=== PATIENT | male | born 1945 | race Caucasian/White ===

== ENCOUNTER 2017-02-07 16:05 | Emergency (ER) | payer MEDICARE, OTHER ==
--- NOTE | 2017-02-07 16:27 | ERNOTE ---
Neuro HPI ER Record Presenting Symptoms: weakness, numbness Time Seen by Provider: 02/07/17 16:05 Source: patient Exam Limitations: no limitations Allergies/Adverse Reactions: Allergies Allergy/AdvReac Type Severity Reaction Status Date / Time Sulfa (Sulfonamide Allergy Verified 02/07/17 16:21 Antibiotics) - History of Present Illness Narrative: Patient was working in his shop when he started to have right facial, arm and leg numbness. He also had difficulty holding on to things with his hand and felt weaker in his right leg, did not fall, symptoms lasted a few minutes and have completely resolved no, no vision or speech problems Date (Duration): 02/07/17 Time (Timing): 15:45 Onset: sudden onset, gone now Severity: mild - Character of Deficits New weakness: Present: RUE, RLE, facial (rt) Altered sensation: Present: RUE, RLE, facial (rt) Additional Deficits: Absent: vision problems, impaired speech Baseline Cognition: Present: alert, oriented x 4 Baseline Gait: Present: walks w/o assistance Associated Symptoms: Denies: fever/chills, sweating, chest pain, neck/back pain Prior Treament: Denies: recently seen, similar symptoms before Review of Systems - Review of Systems Constitutional: Absent: recent illness, fever EYE: Absent: vision changes ENT: Absent: nose congestion, sore throat Respiratory: Present: shortness of breath - baseline COPD, cough - slight Cardiology: Absent: chest pain Gastrointestinal/Abdominal: Absent: nausea, abdominal pain Genitourinary: Present: no symptoms reported Musculoskeletal: Present: no symptoms reported Skin: Present: no symptoms reported Neurological: Present: See HPI - Patient's Past Medical History Patient History - Medical: No pertinent hx Patient History - Cardiac/Respiratory: COPD Patient History - Cancer: No Hx of Cancer Patient History - Surgical Procedures: Other - neck surgery Patient History - Other: None - Family History Mother Family History - Medical: Father Family History - Medical: - Social History Living Situations: home Abuse History: No History of abuse Psych History: No pertinent hx Smoking Status: Former smoker - quit 2014 Alcohol Use: heavy - 3-5 beer per night Drug Use: none - Immunizations Immunizations Up to Date: No Hx Pneumococcal Vaccination: No History of Influenza Vaccine: No Physical Exam - Physical Exam General Appearance: Present: wd/wn, alert, no apparent distress, obese Head Exam: Present: normal inspection, no evidence of injury Eye Exam: Normal inspection: bilateral, PERRL: bilateral, EOMI: bilateral Ears, Nose, Throat: Present: normal ENT inspection, normal pharynx Respiratory: Present: no respiratory distress, normal breath sounds, no accessory muscle use, lungs clear Cardiovascular/Chest: Present: regular rate, rhythm, no murmur, normal peripheral pulses Gastrointestinal/Abdominal: Present: normal bowel sounds, nontender, nondistended, soft Extremity Exam: Present: no edema Neurological Exam: Present: alert, oriented, normal mood/affect, no motor/ sensory deficits Skin Exam: Present: normal color, warm/dry Thu Coma Scale - Assess Eye Opening: Spontaneous Motor: Obeys Commands Verbal: Oriented - Total Coma Scale Total: 15 Initial Stroke Assessment - NIH Stroke Scale Level of Consciousness: Alert LOC Questions (Year and Age): Answers both correctly LOC Commands (open/close eyes/fist): Performs both correctly Lateral Gaze Paresis: None Visual Field Loss: No visual loss Facial Palsy: Normal movement Right Arm Motor (10 sec hold): No drift Left Arm Motor (10 sec hold): No drift Right Leg Motor (5 sec hold): No drift Left Leg Motor (5 sec hold): No drift Limb Ataxia (finger/nose heel/ling): Absent Sensory Loss (pinprick arms/legs/face): No sensory loss Language Aphasia (description/naming/reading): No aphasia; normal Dysarthria (speech clarity): Normal articulation Neglect Inattention (visual/tactile/auditory/spatial/person): No neglect Initial Stroke Scale Score:: 0 ED Progress - Results and Orders Patient's Lab Results:: I have reviewed the patient's lab results. - Vital Signs Patient's Vital Signs:: I have reviewed the patient's vital signs. - EKG EKG: NSR, AK - 219, first degree AV block, no ST T wave changes, other EKG read: Interp. by me - X-Ray X-Ray #1 X-Ray: chest - no acute changes Interpretation: Interp. by me - CT/Ultrasound CT/Ultrasound Narrative: CT head: no acute changes - Progress/Reassessment Progress Note-Subjective: 02/07/17 17:38 no new symptoms, discussed results with family and patient, discussed needs to follow as increased rish for CVA Departure Clinical Impression: TIA (transient ischemic attack) Qualifiers: Transient cerebral ischemia type: unspecified Qualified Code(s): G45.9 - Transient cerebral ischemic attack, unspecified - Departure Disposition: Home self-care Condition: Good Instructions: Transient Ischemic Attack, [id number] Additional Instructions: take a aspirin daily call your doctor in the morning for a follow up appointment Referrals: Lisandro Gregorio DO [Staff Physician] -
[2017-02-07 16:39] LABS: Hematocrit 39.6 % (42.0-52.0); Hemoglobin 13.4 gm/dL (13.5-18.0); Mean Cell Volume 85.5 fl (78-100); Mean Corpuscular Hemoglobin 28.9 pg (27-31); Mean Corpuscular Hgb Conc 33.8 g/dl (32-36); Mean Platelet Volume 12.3 fl (6.0-9.5); Neutrophil # 3.2 K/mm3 (1.3-6.0); Neutrophil % 50.8 % (42-75.0); Platelet Count 148 K/mm3 (150-450); Red Blood Count 4.63 M/mm3 (4.7-6.0); Red Cell Distribution Width 13.2 % (11.5-14.0); White Blood Count 6.2 K/mm3 (4.0-10.5)
[2017-02-07 16:55] LABS: Albumin * 3.5 gm/dl (3.4-5.0); Anion Gap 10.7 mmol/L (6.8-13.8); BUN/Creatinine Ratio 11.5 (9.0-21.6); Ca. Corrected For Albumin 9.5 mg/dL (8.4-10.2); Calcium * 9.4 mg/dL (7.9-10.9); Potassium 3.7 mmol/L (3.4-4.6); Total Protein 7.4 gm/dL (6.2-8.2)
[2017-02-07 16:57] LABS: INR 1.2 INR (0.90-1.10); Partial Thrombolplastin Time 32.7 Seconds (24-32)
[2017-02-07 17:14] VITALS: BP 154/79
[2017-02-07] MEDS ORDERED: ASPIRIN 325 MG TABLET.DR ONE (17:38)
[2017-02-07] MEDS ORDERED: ASPIRIN 325 MG TABLET.DR PO ONE (17:39)
== END 2017-02-07 17:45 | disposition home or self-care (01) ==
LOC: ER 16:05
DX: G45.9 Transient cerebral ischemic attack, unspecified (principal); Z87.891 Personal history of nicotine dependence

== ENCOUNTER 2019-02-28 07:33 | Observation (INO) ==
--- NOTE | 2019-02-28 07:50 | ERNOTE ---
<Jak Thomas - Last Filed: 02/28/19 08:06> Neuro HPI ER Record Presenting Symptoms: numbness, facial droop Time Seen by Provider: 02/28/19 07:40 Source: patient Exam Limitations: no limitations Immunizations: IMMUNIZATION HX Immunizations Up to Date No History of Influenza Vaccine No Hx Pneumococcal Vaccination No Allergies/Adverse Reactions: Allergies Allergy/AdvReac Type Severity Reaction Status Date / Time Sulfa (Sulfonamide Allergy Verified 02/28/19 07:37 Antibiotics) Home Medications: HOME MEDICATIONS albuterol sulfate 2.5 mg IH Q6H PRN ml 11/10/17 [Last Taken Unknown] aspirin 81 mg tablet,delayed release 81 mg PO DAILY 11/10/17 [Last Taken Unknown] albuterol sulfate 90 mcg/actuation aerosol inhaler 2 puff IH Q4H PRN #8.5 g 03/26/18 [Last Taken Unknown] budesonide 0.5 mg/2 mL suspension for nebulization 1 ml IH BID 07/31/18 [Last Taken Unknown] glycopyrrolate 9 mcg-formoterol 4.8 mcg HFA aerosol inhaler 2 inh IH BID 07/31/18 [Last Taken Unknown] losartan 100 mg tablet 100 mg PO DAILY #90 tab 12/12/18 [Last Taken Unknown] allopurinol 300 mg tablet 300 mg PO DAILY #30 tab 01/04/19 [Last Taken Unknown] - History of Present Illness Narrative: 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 He states it lasted 10 to 12 minutes and resolved. He had an episode on his right side approximately 2 years ago where he had right-sided weakness numbness that did resolve spontaneously he was worked up in the ER but did not have any further testing. Onset: sudden onset, gone now Severity: moderate - Character of Deficits New weakness: Present: LUE, facial (lt) Altered sensation: Present: LUE, facial (lt) Baseline Cognition: Present: alert, oriented x 4 Baseline Gait: Present: walks w/o assistance Associated Symptoms: Reports: none Review of Systems - Review of Systems Constitutional: Absent: recent illness, fever, chills EYE: Absent: vision changes Respiratory: Absent: shortness of breath Cardiology: Absent: chest pain, palpitations Gastrointestinal/Abdominal: Absent: nausea, vomiting Genitourinary: Absent: dysuria Skin: Absent: rash Neurological: Absent: headache, dizziness/light-headedness Medical History (Last Reviewed 02/28/19 @ 07:49 by Jak Thomas DO) COPD (chronic obstructive pulmonary disease) Onset Date: ~06/23/11 Cervical myelopathy Onset Date: Unknown Depression Onset Date: Unknown Gout Onset Date: ~12/31/02 Hypertension Onset Date: Unknown Impotence, organic Onset Date: Unknown Osteoarthritis Onset Date: ~06/23/11 Spinal cord disease Onset Date: Unknown cervical stenosis, 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; C5 and C6 Abscess of nose Onset Date: ~08/03/15 History of TIA (transient ischemic attack) Onset Date: ~09/06/17 Surgical History: Surgical History (Last Reviewed 02/28/19 @ 07:49 by Jak Thomas DO) History of colonoscopy Onset Date: Unknown History of laminectomy Onset Date: ~1995 cervical laminectomy 1994 & 1995 History of tonsillectomy Onset Date: Unknown History of vasectomy Onset Date: ~1972 Family History: Family History (Last Reviewed 02/28/19 @ 07:49 by Jak Thomas DO) Father , 64 yrs Cancer lung Mother , 44 yrs Brain tumor Brother Heart disease Sister Lupus Social History: (Last Reviewed 02/28/19 @ 07:49 by Jak Thomas DO) Social History: Marital status: household members: spouse Tobacco: Smoking Status: Former smoker Alcohol: alcohol intake: current Alcohol type: beer alcohol intake frequency: 0-2 drinks per day Substance Use: substance use type: does not use Dietary Habits: caffeine: Yes Physical Exam - Physical Exam General Appearance: Present: wd/wn, alert, no apparent distress Head Exam: Present: normal inspection, no evidence of injury Eye Exam: Normal inspection: bilateral, PERRL: bilateral, EOMI: bilateral Neck: Present: normal inspection, nontender, supple Respiratory: Present: no respiratory distress, no accessory muscle use, chest nontender, lungs clear Cardiovascular/Chest: Present: regular rate, rhythm, no murmur Gastrointestinal/Abdominal: Present: normal bowel sounds, nontender, nondistended, soft Back Exam: Present: normal inspection, normal range of motion Extremity Exam: Present: normal inspection, normal range of motion Neurological Exam: Present: alert, oriented, normal mood/affect, no motor/sensory deficits, 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 Skin Exam: Present: normal color, warm/dry Lymphatic Exam: Present: no adenopathy Thu Coma Scale - Assess Eye Opening: Spontaneous Motor: Obeys Commands Verbal: Oriented - Total Coma Scale Total: 15 Initial Stroke Assessment - Date/Time of assessment Stroke Scale Date: 02/28/19 Stroke Scale Time: 07:40 - NIH Stroke Scale Level of Consciousness: Alert LOC Questions (Year and Age): Answers both correctly LOC Commands (open/close eyes/fist): Performs both correctly Lateral Gaze Paresis: None Visual Field Loss: No visual loss Facial Palsy: Normal movement Right Arm Motor (10 sec hold): No drift Left Arm Motor (10 sec hold): No drift Right Leg Motor (5 sec hold): No drift Left Leg Motor (5 sec hold): No drift Limb Ataxia (finger/nose heel/ling): Absent Sensory Loss (pinprick arms/legs/face): No sensory loss Language Aphasia (description/naming/reading): No aphasia; normal Dysarthria (speech clarity): Normal articulation Neglect Inattention (visual/tactile/auditory/spatial/person): No neglect Initial Stroke Scale Score:: 0 Progress - EKG EKG #1 EKG: nonspecific ST T wave changes EKG read: Interp. by me EKG Comments: Computer reads ST elevation consider inferior injury although I do not see significant ST elevation that would signify a STEMI. - Transfer of Care Physician Sign Out: Jak Thomas Receiving Physician: Joaquin France Pending Results: Labs Expected Disposition: Discharge Departure Clinical Impression: Paresthesia TIA (transient ischemic attack) Qualifiers: Transient cerebral ischemia type: unspecified Qualified Code(s): G45.9 - Transient cerebral ischemic attack, unspecified - Departure Disposition: Still a patient Condition: Fair Referrals: Lavonne Camacho MD [Primary Care Provider] - <Joaquin France - Last Filed: 02/28/19 09:48> Neuro HPI ER Record Immunizations: IMMUNIZATION HX Immunizations Up to Date Yes History of Influenza Vaccine Yes Hx Pneumococcal Vaccination Yes Medical History (Last Reviewed 02/28/19 @ 07:49 by Jak Thomas DO) COPD (chronic obstructive pulmonary disease) Onset Date: ~06/23/11 Cervical myelopathy Onset Date: Unknown Depression Onset Date: Unknown Gout Onset Date: ~12/31/02 Hypertension Onset Date: Unknown Impotence, organic Onset Date: Unknown Osteoarthritis Onset Date: ~06/23/11 Spinal cord disease Onset Date: Unknown cervical stenosis, 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; C5 and C6 Abscess of nose Onset Date: ~08/03/15 History of TIA (transient ischemic attack) Onset Date: ~09/06/17 Surgical History: Surgical History (Last Reviewed 02/28/19 @ 07:49 by Jak Thomas DO) History of colonoscopy Onset Date: Unknown History of laminectomy Onset Date: ~1995 cervical laminectomy 1994 & 1995 History of tonsillectomy Onset Date: Unknown History of vasectomy Onset Date: ~1972 Family History: Family History (Last Reviewed 02/28/19 @ 07:49 by Jak Thomas DO) Father , 64 yrs Cancer lung Mother , 44 yrs Brain tumor Brother Heart disease Sister Lupus Social History: (Last Reviewed 02/28/19 @ 07:49 by Jak Thomas DO) Social History: Marital status: household members: spouse Tobacco: Smoking Status: Former smoker Alcohol: alcohol intake: current Alcohol type: beer alcohol intake frequency: 0-2 drinks per day Substance Use: substance use type: does not use Dietary Habits: caffeine: Yes Progress - Results and Orders Patient's Lab Results:: I have reviewed the patient's lab results. - Vital Signs Patient's Vital Signs:: I have reviewed the patient's vital signs. Vital Signs: Vital Signs 02/28/19 07:34 02/28/19 07:40 02/28/19 08:36 Temperature 36.2 C Pulse Rate 86 88 63 Respiratory Rate 15 Blood Pressure 180/92 H 158/80 H O2 Sat by Pulse Oximetry 96 94 02/28/19 09:22 Temperature Pulse Rate 66 Respiratory Rate 14 Blood Pressure 149/77 O2 Sat by Pulse Oximetry 97 - CT/Ultrasound CT/Ultrasound Narrative: CT the head reviewed by me Plan - Plan Plan: I have unclear etiology for this patient's fluctuating numbness on the left side of his body. He has had cervical spine surgery but he is also having a numbness on both his face and his leg. I am suspecting that he may be having TIAs. He started 2 days ago and he had one 2 days ago as mentioned that resolved. It returned again this morning, and resolved, and he is also had a slight recur rence while he is been in the ED. patient will be admitted to an observation bed under the care of Dr. Gregorio.
[2019-02-28 08:13] LABS: Hematocrit 39.3 % (42.0-52.0); Hemoglobin 13.4 gm/dL (13.5-18.0); Mean Cell Volume 89.5 fl (78-100); Mean Corpuscular Hemoglobin 30.5 pg (27-31); Mean Corpuscular Hgb Conc 34.1 g/dl (32-36); Mean Platelet Volume 10.7 fl (8-11.3); Neutrophil # 3.4 K/mm3 (1.3-6.0); Neutrophil % 65.4 % (42-75.0); Platelet Count 155 K/mm3 (150-450); Red Blood Count 4.39 M/mm3 (4.7-6.0); Red Cell Distribution Width 13.8 % (11.5-14.0); White Blood Count 5.2 K/mm3 (4.0-10.5)
[2019-02-28 08:25] LABS: Prothrombin Time (Patient) 10.4 Seconds (9.1-10.7)
[2019-02-28 08:26] LABS: INR 1.05 INR (0.92-1.08); Partial Thrombolplastin Time 30.7 Seconds (24-32)
[2019-02-28 08:28] LABS: Albumin * 3.4 gm/dl (3.4-5.0); BUN/Creatinine Ratio 11.5 (9.0-21.6); Bilirubin, Total 1.1 mg/dL (0.0-1.1); Ca. Corrected For Albumin 9.5 mg/dL (8.4-10.2); Calcium * 9.3 mg/dL (7.9-10.9); Carbon Dioxide 28.2 mmol/L (24-32.6); Potassium 4.2 mmol/L (3.4-4.6); Total Protein 7.2 gm/dL (6.2-8.2)
[2019-02-28] MEDS ORDERED: HEPARIN SOD.,PORCINE 100 UNITS/ML IV PRN (11:02)
[2019-02-28] MEDS ORDERED: ALBUTEROL SULFATE 2.5 MG/0.5 ML VIAL.NEB IH PRN (15:46)
[2019-02-28] MEDS: IBUPROFEN 800 MG TABLET PO PRN (17:06)
[2019-02-28] MEDS: BUDESONIDE 0.5 MG/2 ML VIAL.NEB IH SCH (18:05)
[2019-02-28] MEDS: [UNRECOGNIZED DRUG - OTHER] PO SCH (20:50)
[2019-02-28] MEDS: FORMOTEROL FUM PO SCH (20:50)
[2019-02-28] MEDS: GLYCOPYRROLATE PO SCH (20:50)
--- NOTE | 2019-02-28 23:26 | HP ---
Chief Complaint - Chief Complaint Date of Service: 02/28/19 Time of Service: 15:30 Chief Complaint: left face, left arm, and left leg numbness and tingling History of Present Illness: Josh is a 74 yo male with known lung cancer undergoing chemotherapy. He reports yesterday he had a brief period of left facial numbness and tingling that lasted a few minutes. This was also present in the left arm. It completely resolved but hours later returned and then went away again. Today he reports symptoms returned but continued to persist he also had left leg numbness and tingling. He has chronic back pain but no new pain. He report the numbness makes him feel like he talks a little different, but no significant change and no difficulty swallowing. He reports symptoms are a little better then they were initially but are still present. No chest pain, shortness of breath, bowel change, or bladder change. He had a head CT in the ER that showed no acute change. 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; C5 and C6 Abscess of nose Onset Date: ~08/03/15 History of TIA (transient ischemic attack) Onset Date: ~09/06/17 Surgical History: Surgical History (Last Reviewed 02/28/19 @ 10:09 by Enedelia Milan RN) History of colonoscopy Onset Date: Unknown History of laminectomy Onset Date: ~1995 cervical laminectomy 1994 & 1995 History of tonsillectomy Onset Date: Unknown History of vasectomy Onset Date: ~1972 Family History: Family History (Last Reviewed 02/28/19 @ 10:09 by Enedelia Milan RN) Father , 64 yrs Cancer lung Mother , 44 yrs Brain tumor Brother Heart disease Sister Lupus Social History: (Last Reviewed 02/28/19 @ 10:09 by Enedelia Milan RN) Social History: Marital status: household members: spouse Tobacco: Smoking Status: Former smoker Alcohol: alcohol intake: current Alcohol type: beer alcohol intake frequency: 0-2 drinks per day Substance Use: substance use type: does not use Dietary Habits: caffeine: Yes Review Of Systems (GEN) - Review of Systems Generalized/Overall Review: Absent: Weakness, Chills, Fever, Fatigue EENTM: Present: No Symptoms Reported Respiratory: Absent: Cough, Shortness of Breath Cardiac: Absent: Chest Pain, Edema, Palpitations Abdominal: Absent: Nausea, Vomiting Genitourinary: Present: No Symptoms Reported Musculoskeletal: Present: Back Pain Neurological: Present: Parasthesia, Tingling. Absent: Tremors, Weakness Skin: Present: No Symptoms Reported Endocrine: Present: No Symptoms Reported Misc: All systems neg except as marked Immunizations: IMMUNIZATION HX Immunizations Up to Date Yes History of Influenza Vaccine Yes Hx Pneumococcal Vaccination Yes Allergies/Adverse Reactions: Allergies Allergy/AdvReac Type Severity Reaction Status Date / Time Sulfa (Sulfonamide Allergy Verified 02/28/19 10:09 Antibiotics) Home Medications: HOME MEDICATIONS albuterol sulfate 2.5 mg IH Q6H PRN ml 11/10/17 [Last Taken Unknown] aspirin 81 mg tablet,delayed release 81 mg PO DAILY 11/10/17 [Last Taken Unk nown] albuterol sulfate 90 mcg/actuation aerosol inhaler 2 puff IH Q4H PRN #8.5 g 03/26/18 [Last Taken Unknown] budesonide 0.5 mg/2 mL suspension for nebulization 1 ml IH BID 07/31/18 [Last Taken Unknown] glycopyrrolate 9 mcg-formoterol 4.8 mcg HFA aerosol inhaler 2 inh IH BID 07/31/18 [Last Taken Unknown] losartan 100 mg tablet 100 mg PO DAILY #90 tab 12/12/18 [Last Taken Unknown] allopurinol 300 mg tablet 300 mg PO DAILY #30 tab 01/04/19 [Last Taken Unknown] Exam - Exam Vital Signs: Vital Signs - Last Taken Temp 36.8 C 02/28/19 18:35 Pulse 65 02/28/19 18:35 Resp 18 02/28/19 18:35 BP 154/70 H 02/28/19 18:35 Pulse Ox 99 02/28/19 21:10 Constitutional: Present: Alert, Oriented x3, Cooperative ENT Exam: Present: hearing grossly normal Eye Exam: bilateral eye: normal inspection Respiratory: Present: lungs clear, normal breath sounds, no respiratory distress Cardiovascular/Chest: Present: regular rate, rhythm, no chest tenderness, no murmur Peripheral Pulses: radial (R): 2+, radial (L): 2+ Abdomen: Present: Normal bowel sounds, soft, nontender, nondistended Skin Exam: Present: normal color, warm/dry, no cyanosis Neurologic: Present: alert, normal mood/affect, oriented x 3, sensory deficit - left maxillary, left mandibular, left arm, and left leg with slightly decreased sensation.. Absent: facial droop, motor weakness Appearance: Present: appropriate appearance, appropriate insight Eye contact: Present: cooperative, good eye contact, normal speech Thoughts: Present: normal thought pattern, no apparent hallucination Diagnostic Studies: Abnormal Lab Results 02/28/19 02/28/19 02/28/19 Range/Units 08:00 08:00 08:00 RBC 4.39 L (4.7-6.0) M/mm3 Hgb 13.4 L (13.5-18.0) gm/dL Hct 39.3 L (42.0-52.0) % Lymphocytes % 19.8 L (20-51) % Monocytes % 11.3 H (0.0-9) % Basophils % 1.2 H (0.0-1.0) % Lymphocytes # 1.03 L (1.5-3.5) k/mm3 ESR 25 H (0-10) mm/hr Random Glucose 120 H (70-110) mg/dL Laboratory Results WBC 5.2 K/mm3 (4.0-10.5) 02/28/19 08:00 RBC 4.39 M/mm3 (4.7-6.0) L 02/28/19 08:00 Hgb 13.4 gm/dL (13.5-18.0) L 02/28/19 08:00 Hct 39.3 % (42.0-52.0) L 02/28/19 08:00 MCV 89.5 fl (78-100) 02/28/19 08:00 MCH 30.5 pg (27-31) 02/28/19 08:00 MCHC 34.1 g/dl (32-36) 02/28/19 08:00 RDW 13.8 % (11.5-14.0) 02/28/19 08:00 Plt Count 155 K/mm3 (150-450) 02/28/19 08:00 MPV 10.7 fl (8-11.3) 02/28/19 08:00 Immature Gran % (Auto) 0.40 % (0.001-0.429) 02/28/19 08:00 Immature Gran # (Auto) 0.02 K/mm3 (0.000-0.0310) 02/28/19 08:00 Neutrophils % 65.4 % (42-75.0) 02/28/19 08:00 Lymphocytes % 19.8 % (20-51) L 02/28/19 08:00 Monocytes % 11.3 % (0.0-9) H 02/28/19 08:00 Eosinophils % 1.9 % (0.0-3.0) 02/28/19 08:00 Basophils % 1.2 % (0.0-1.0) H 02/28/19 08:00 Nucleated RBC % 0.0 k/mm3 (0-1) 02/28/19 08:00 Neutrophils # 3.4 K/mm3 (1.3-6.0) 02/28/19 08:00 Lymphocytes # 1.03 k/mm3 (1.5-3.5) L 02/28/19 08:00 Monocytes # 0.6 k/mm3 (0.0-1.0) 02/28/19 08:00 Eosinophils # 0.1 k/mm3 (0.0-0.7) 02/28/19 08:00 Absolute Basophils 0.1 k/mm3 (0.0-0.1) 02/28/19 08:00 ESR 25 mm/hr (0-10) H 02/28/19 08:00 PT 10.4 Seconds (9.1-10.7) 02/28/19 08:00 INR (Anticoag Therapy) 1.05 INR (0.92-1.08) 02/28/19 08:00 PTT ([place]) 30.7 Seconds (24-32) 02/28/19 08:00 Sodium 137 mmol/L (132-142) 02/28/19 08:00 Plasma Sodium 137 mmol/L (130-142) 02/28/19 08:00 Potassium 4.2 mmol/L (3.4-4.6) 02/28/19 08:00 Chloride 104 mmol/L (97-106) 02/28/19 08:00 Carbon Dioxide 28.2 mmol/L (24-32.6) 02/28/19 08:00 Anion Gap 9.0 mmol/L (6.8-13.8) 02/28/19 08:00 BUN 11 mg/dL (6-23) 02/28/19 08:00 Creatinine 0.96 mg/dL (0.4-1.4) 02/28/19 08:00 Est GFR (Non-Af Amer) 82 mL/min (60-130) 02/28/19 08:00 BUN/Creatinine Ratio 11.5 (9.0-21.6) 02/28/19 08:00 Random Glucose 120 mg/dL (70-110) H 02/28/19 08:00 Calcium 9.3 mg/dL (7.9-10.9) 02/28/19 08:00 Calcium Adj for Albumin 9.5 mg/dL (8.4-10.2) 02/28/19 08:00 Total Bilirubin 1.1 mg/dL (0.0-1.1) 02/28/19 08:00 AST 21 U/L (0-48) 02/28/19 08:00 ALT 30 U/L (19-67) 02/28/19 08:00 Alkaline Phosphatase 73 U/L (50-170) 02/28/19 08:00 Total Protein 7.2 gm/dL (6.2-8.2) 02/28/19 08:00 Albumin 3.4 gm/dl (3.4-5.0) 02/28/19 08:00 Assessment/Plan - Narrative Narrative: Josh is a 74 yo male with transient left sided numbness and tingling. Head CT negative for acute change. Will get MRI to evaluate for stroke. This may also be nerve related in spinal column vs effect from chemotherapy. His symptoms do not follow classic stroke pattern. Will admit to observation for monitoring and further evaluation. If negative for a stroke will plan to discharge to home tomorrow. - Assessment/Plan (1) Squamous cell lung cancer Problem: Acute Qualifiers: Laterality: left Qualified Code(s): C34.92 - Malignant neoplasm of unspecified part of left bronchus or lung (2) Paresthesia Problem: Acute
[2019-03-01] MEDS: BUDESONIDE 0.5 MG/2 ML VIAL.NEB IH SCH (06:05)
[2019-03-01] MEDS: IBUPROFEN 800 MG TABLET PO PRN (06:29)
[2019-03-01] MEDS ORDERED: ASPIRIN 81 MG TABLET.DR PO SCH (09:00)
[2019-03-01] MEDS ORDERED: ALLOPURINOL 300 MG TABLET PO SCH (09:00)
[2019-03-01] MEDS ORDERED: LOSARTAN POTASSIUM 50 MG TABLET PO SCH (09:00)
[2019-03-01] MEDS: FORMOTEROL FUM PO SCH (09:21)
[2019-03-01] MEDS: [UNRECOGNIZED DRUG - OTHER] PO SCH (09:21)
[2019-03-01] MEDS: GLYCOPYRROLATE PO SCH (09:21)
--- NOTE | 2019-03-01 11:51 | DS ---
(1) Paresthesia Problem: Acute (2) Squamous cell lung cancer Problem: Acute Qualifiers: Laterality: left Qualified Code(s): C34.92 - Malignant neoplasm of unspecified part of left bronchus or lung Date of Discharge:: 03/01/19 Description of Stay: Josh is a 74 yo male that was admitted with left sided face, arm, and leg numbness and tingling. Head CT was negative for acute change in the ER. To evaluate for stroke a MRI was done which also showed no evidence of Stroke. Symptoms persist but have not worsened. Symptoms could be related to chemotherapy from his lung cancer. He reports he has had a PET CT and there was no metastasis seen. To further evaluate his symptoms I will set up an outpatient MRI of his cervical spine to look for disc disease vs bone metastasis. He is ove rall doing well and only has minimal residual numbness and tingling of left arm. Procedures Performed: none Results and Findings: Lab Pending Results 02/28/19 08:00: WBC 5.2, RBC 4.39 L, Hgb 13.4 L, Hct 39.3 L, MCV 89.5, MCH 30.5, MCHC 34.1, RDW 13.8, Plt Count 155, MPV 10.7, Immature Gran % (Auto) 0.40, Immature Gran # (Auto) 0.02, Neutrophils % 65.4, Lymphocytes % 19.8 L, Monocytes % 11.3 H, Eosinophils % 1.9, Basophils % 1.2 H, Nucleated RBC % 0.0, Neutrophils # 3.4, Lymphocytes # 1.03 L, Monocytes # 0.6, Eosinophils # 0.1, Absolute Basophils 0.1 02/28/19 08:00: ESR 25 H 02/28/19 08:00: PT 10.4, INR (Anticoag Therapy) 1.05, PTT (Scooter) 30.7 02/28/19 08:00: Sodium 137, Plasma Sodium 137, Potassium 4.2, Chloride 104, Carbon Dioxide 28.2, Anion Gap 9.0, BUN 11, Creatinine 0.96, Est GFR (Non-Af Amer) 82, BUN/Creatinine Ratio 11.5, Random Glucose 120 H, Calcium 9.3, Calcium Adj for Albumin 9.5, Total Bilirubin 1.1, AST 21, ALT 30, Alkaline Phosphatase 73, Total Protein 7.2, Albumin 3.4 Discharge Location: Home Disposition: Home self-care Condition: Fair Discharge Activity: Activity as tolerated Discharge Diet: General/regular food Referrals: Lavonne Camacho MD [Primary Care Provider] - One Week Problem Oriented Discharge Instructions to Patient/Family: Paresthesia, [id number] Complete Home Medications List: Complete Home Medication List: albuterol sulfate 2.5 mg IH Q6H PRN ml 11/10/17 aspirin 81 mg tablet,delayed release 81 mg PO DAILY 11/10/17 albuterol sulfate 90 mcg/actuation aerosol inhaler 2 puff IH Q4H PRN #8.5 g 03/26/18 budesonide 0.5 mg/2 mL suspension for nebulization 1 ml IH BID 07/31/18 glycopyrrolate 9 mcg-formoterol 4.8 mcg HFA aerosol inhaler 2 inh IH BID 07/31/18 losartan 100 mg tablet 100 mg PO DAILY #90 tab 12/12/18 allopurinol 300 mg tablet 300 mg PO DAILY #30 tab 01/04/19 Amb Orders for Discharge: MRI Cervical W/WO Time Frame: 3 Days, Facility: [facility], Location: Radiology
[2019-03-01 12:58] VITALS: BP 148/65
== END 2019-03-01 13:10 | disposition home or self-care (01) ==
LOC: ER 07:33 → MS 07:33
PROVIDERS: ADMIT Family Medicine; ATTEND Family Medicine
CPT/HCPCS: 36415; 70450; 70553; 71020; 71046; 80053; 85025; 85610; 85652; 85730; 93005; 94640; 94664; 99285; A9576; G0378